=== PATIENT | male | born 1995 | race African-American/Black ===

== ENCOUNTER 2018-02-26 23:57 | Emergency (ER) | payer SELFPAY ==
--- NOTE | 2018-02-27 00:40 | RADIOLOGY REPORT (SQ) ---
EXAM DESCRIPTION: CT HEAD WITHOUT IV CONTRAST COMPLETED DATE/TME: 02/27/2018 00:00 CLINICAL HISTORY: 23 years Male, fall COMPARISON: None. TECHNIQUE: No contrast. Coronal and sagittal reformat. This exam was performed according to our departmental dose-optimization program, which includes automated exposure control, adjustment of the mA and/or kV according to patient size and/or use of iterative reconstruction technique. FINDINGS: No hemorrhage or infarct. No mass, mass effect, or midline shift. Small frontal scalp swelling. Brain and extra-axial structures appear otherwise intact. IMPRESSION: Scalp swelling.
--- NOTE | 2018-02-27 00:42 | ER Document Report ---
ED General <DONY ORDONEZ - Last Filed: 02/27/18 04:34> - General Mode of Arrival: Ambulatory Information source: Patient TRAVEL OUTSIDE OF THE [place] IN LAST 30 DAYS: No <ABRIL SHAFFER - Last Filed: 02/27/18 18:34> - General Chief Complaint: Head laceration/ head injury Stated Complaint: HEAD INJURY Time Seen by Provider: 02/27/18 00:35 Notes: Patient is a 23 year old male presenting to the emergency department complaining of a laceration to the forehead secondary a fall. Patient states he does not really remember what happened but thinks he was at work moving some boxes when he tripped and fell. Nurses notes state he patient stated he took Xanax, smoked marijuana, had few beers and 2 shots of Ynes and fell and hit his head. Nurse states the patient is from [place]. Cousin, whom brought patient to the emergency department, left a phone number to call. 01:00- Nurse called the patient's cousin to gather more story. She states the patient did have 2 shots of Ynes and proceeded to go outside, wearing flip flops, to use the restroom. She states the patient then tripped and fell on the concrete. It is unclear if the patient fall was witnessed or why the patient is in [place]. No other history was obtained. (ABRIL SHAFFER) Past Medical History - General Information source: Patient, Emergency Med Personnel Cannot obtain history due to: Intoxicated - Social History Smoking Status: Unknown if Ever Smoked Family History: Reviewed & Not Pertinent <ABRIL SHAFFER - Last Filed: 02/27/18 18:34> Review of Systems - Review of Systems Constitutional: No symptoms reported EENT: No symptoms reported Musculoskeletal: See HPI Skin: See HPI Hematologic/Lymphatic: No symptoms reported Neurological/Psychological: No symptoms reported <ABRIL SHAFFER - Last Filed: 02/27/18 18:34> Physical Exam - General General appearance: Other - Sleeping, arousable. Somewhat confused. In distress: None - HEENT Head: Normocephalic, Other - A 1x2 cm stellate contusion laceration to the forehead. Extraocular movements intact: Yes - Initial bilateral nystagmus which resolved Neck: Other - Placed in a C-collar - Respiratory Respiratory status: No respiratory distress - Extremities General upper extremity: Normal ROM General lower extremity: Normal ROM - Neurological Neuro grossly intact: Yes Cognition: Confused Orientation: AAOx4 [place] Coma Scale Eye Opening: Spontaneous [place] Coma Scale Verbal: Oriented Marco Coma Scale Motor: Obeys Commands [place] Coma Scale Total: 15 Speech: Normal - Psychological Associated symptoms: Confused - Skin Skin Temperature: Warm Skin Moisture: Dry Skin Color: Normal <EDMUNDABRIL BASSETT - Last Filed: 02/27/18 18:34> - Vital signs Vitals: Resp Pulse Ox 28 H 99 02/27/18 00:15 02/27/18 00:15 Course - Diagnostic Test Radiology reviewed: Reports reviewed - CT scans of the head and neck show the soft tissue injury to the forehead, no other injuries. <DONY ORDONEZ - Last Filed: 02/27/18 04:34> <ABRIL SHAFFER - Last Filed: 02/27/18 18:34> - Re-evaluation Re-evalutation: 02/27/18 04:37 PROCEEDURE: Forehead wound is a crush laceration with abrasion. The skin was prepped with Shur-Clens. The wound was anesthetized with 5 mL's 1% lidocaine with epi local. The jagged edges of the wounds were approximated with 5-0 nylon sutures, and the center was a devitalized flap approximately 3 x 5 mm that was resected. There were minor satellite lacerations that were also closed with the 5-0 nylon sutures. There were a total of 12 simple sutures placed. Bacitracin ointment and sterile dressing were applied. There were no complications. After the wound was closed, attention was directed to the patient's oral cavity and lips due to dried blood. No additional injuries were detected. The patient is alert and oriented at this time after having been here sleeping for a few hours. His initial alcohol level was just over 100, he admitted to Xanax and marijuana when he first arrived. (DONY ORDONEZ) - Vital Signs Vital signs: Temp Pulse Resp BP Pulse Ox 97.9 F 83 20 130/89 H 98 02/27/18 05:14 02/27/18 05:14 02/27/18 05:14 02/27/18 05:14 02/27/18 05:14 Procedures - Laceration/Wound Repair Upper Face Time completed: 04:30 Wound length (cm): 3 Wound's Depth, Shape: Irregular, Stellate, Contused tissue, Other - Full- thickness down to the forehead muscles Laceration pre-procedure: Betadine prep applied, Sterile drapes applied Anesthetic type: 1% Lidocaine w/epi Volume Anesthetic (mLs): 5 Wound explored: No foreign body removed Irrigated w/ Saline (mLs): 30 Wound Debrided: Moderate Wound Repaired With: Sutures Suture Size/Type: 5:0 Number of Sutures: 12 Layer Closure?: No Post-procedure wound care: Sterile dressing applied Post-procedure NV exam normal: Yes Complications: No <DONY ORDONEZ - Last Filed: 02/27/18 04:34> Discharge <DONY ORDONEZ - Last Filed: 02/27/18 04:34> <ABRIL SHAFFER - Last Filed: 02/27/18 18:34> - Discharge Clinical Impression: Crush injury Laceration of forehead, complicated Qualifiers: Encounter type: initial encounter Qualified Code(s): S01.81XA - Laceration without foreign body of other part of head, initial encounter Alcohol intoxication Qualifiers: Complication of substance-induced condition: uncomplicated Qualified Code(s): F10.920 - Alcohol use, unspecified with intoxication, uncomplicated Condition: Stable Disposition: HOME, SELF-CARE Additional Instructions: Facial Laceration: As facial cuts are usually caused by a blunt injury, it's usually best to rest for a day to avoid swelling. Do not allow any bumping or rubbing of the area. Keep the stitches dry. Follow the treatment plan the doctor has discussed with you and DO NOT DELAY getting the stitches out. Once stitches are removed, continue to protect the area from trauma and sunlight (use a sunscreen) for about six months. If any signs of infection occur (swelling, redness, increasing tenderness, red streaks, tender lumps in the neck or near the ear on the side of the laceration, or fever), see the doctor immediately. Take the antibiotics as prescribed. Keep wounds clean and dressed with bacitracin ointment. Follow-up with your doctor in 2-3 days to recheck the wound. Have the sutures removed in 7-10 days as long as there is no sign of infection. If there are signs of infection, you should be seen immediately for reevaluation of the wounds. RETURN TO THE EMERGENCY ROOM IF ANY NEW OR WORSENING SYMPTOMS. Prescriptions: Cephalexin Monohydrate [Keflex 500 mg Capsule] 500 mg PO QID #20 capsule Scribe Attestation: 02/27/18 01:24 I personally performed the services described in the documentation, reviewed and edited the documentation which was dictated to the scribe in my presence, and it accurately records my words and actions. (DONY ORDONEZ) Scribe Documentation - Scribe Written by Radha:: Radha Costello, 02/27/2018 00:47 acting as scribe for :: Beata <ABRIL SHAFFER - Last Filed: 02/27/18 18:34>
--- NOTE | 2018-02-27 00:42 | RADIOLOGY REPORT (SQ) ---
EXAM DESCRIPTION: CT CERVICAL SPINE WITHOUT IV CONTRAST COMPLETED DATE/TME: 02/27/2018 00:00 CLINICAL HISTORY: 23 years Male, fall Comparison: None. Technique: No contrast. Coronal and sagittal reformat. This exam was performed according to our departmental dose-optimization program, which includes automated exposure control, adjustment of the mA and/or kV according to patient size and/or use of iterative reconstruction technique.[facility]: Dose Right [facility]: CareDose [facility]: Dose Right [facility]: Teradose 4D [facility]: ZenSuite LIMITATIONS: None Findings: Normal alignment. Normal curvature. No fracture. Normal vertebral heights. Partially imaged nuchal soft tissues, inferior cranium, and upper thorax appear otherwise grossly intact. IMPRESSION: No acute findings.
[2018-02-27] MEDS ORDERED: LIDOCAINE 1%/EPINEPHRINE INJ 20 ML VIAL INJ ONE (00:44)
[2018-02-27] MEDS ORDERED: CEPHALEXIN 500 MG CAPSULE PO ONE (04:30)
[2018-02-27] MEDS ORDERED: CEPHALEXIN 500 MG CAPSULE ONE (05:02)
[2018-02-27 06:07] VITALS: BP 130/89
== END 2018-02-27 05:14 | disposition home or self-care (01) ==
LOC: ER 23:57
PROC: 0HQ1XZZ Repair Face Skin, External Approach (ICD-10-PCS; principal; 2018-02-26)
DX: S01.81XA Laceration without foreign body of other part of head, initial encounter (principal); S09.90XA Unspecified injury of head, initial encounter; W01.0XXA Fall on same level from slipping, tripping and stumbling without subsequent striking against object, initial encounter; F10.920 Alcohol use, unspecified with intoxication, uncomplicated
CPT/HCPCS: 99283; 36415; 80307; 70450; 72125; 12052; L0120; J3490